=== PATIENT | male | born 1975 | race Caucasian/White ===

== ENCOUNTER → 2021-12-01 14:32 | Outpatient (BNVA) | payer SELFPAY | PROVIDERS: PCP Nurse Practitioner Family; Visit Provider Nurse Practitioner Family | DX: R06.02 Shortness of breath (principal); K21.9 Gastro-esophageal reflux disease without esophagitis | CPT/HCPCS: 71046 ==

== ENCOUNTER → 2021-12-04 09:40 | Outpatient (BNVA) | payer SELFPAY | PROVIDERS: PCP Nurse Practitioner Family; Visit Provider Nurse Practitioner Family | DX: R59.1 Generalized enlarged lymph nodes (principal); R53.83 Other fatigue; M54.6 Pain in thoracic spine; G89.29 Other chronic pain; R07.0 Pain in throat | CPT/HCPCS: 80053; 82306; 82607; 84403; 84550; 85025; 85651; 86038; 86140; 86200; 86431; 87070 ==

== ENCOUNTER → 2022-04-03 13:03 | Outpatient (BNVA) | payer SELFPAY | PROVIDERS: PCP Nurse Practitioner Family; Visit Provider Family Medicine | DX: J02.9 Acute pharyngitis, unspecified (principal) | CPT/HCPCS: 87071; 87880 ==

== ENCOUNTER 2023-01-21 13:19 | Outpatient (CLI) | payer SELFPAY ==
--- NOTE | 2023-01-21 13:30 | CT_ITS ---
WS: [id number] CT SINUSES TECHNIQUE: Noncontrast CT of the paranasal sinuses with coronal and sagittal reformatted images. CLINICAL INFORMATION: J32.9 - Chronic sinusitis, unspecified COMPARISON: None. DLP: 420.[address] scans at [facility] use at least one of these dose optimization techniques: automated e xposure control; mA and/or kV adjustment per patient size (includes targeted exams where dose is matc hed to clinical indication); or iterative reconstruction. FINDINGS: Mild LEFT RIGHT nasal septal deviation measuring 5 mm. Mild narrowing of the ostiomeatal units bilate rally which remain patent. Paranasal sinuses are well aerated. Mastoid air cells are well aerated. No rmal posterior nasopharynx and parapharyngeal fat. Frontal sinuses and ethmoid air cells are well aerated. Frontoethmoidal recesses are patent. Maxillar y sinuses are well aerated. Sphenoid sinuses are patent. Sphenoid ostia appear patent. IMPRESSION: 1. Mild LEFT RIGHT nasal septal deviation measuring 5 mm. 2. Mild narrowing of the ostiomeatal units bilaterally which remain patent. 3. Paranasal sinuses are well aerated. 4. Mastoid air cells are well aerated.
== END 2023-01-21 13:20 | disposition home or self-care (01) ==
LOC: RAD 13:22
PROVIDERS: PCP Nurse Practitioner Family; Visit Provider Nurse Practitioner Family
DX: J32.9 Chronic sinusitis, unspecified (principal); J34.2 Deviated nasal septum
CPT/HCPCS: 70486

== ENCOUNTER 2023-01-22 12:11 | Outpatient (CLI) | payer SELFPAY ==
--- NOTE | 2023-01-22 12:20 | US_ITS ---
WS: [id number] ULTRASOUND SOFT TISSUES LEFT neck. HISTORY: R22.1 - Localized swelling, mass and lump, neck COMPARISON: None available. TECHNIQUE: 2-D and color Doppler imaging is submitted. Ultrasound is directed over the LEFT neck near the mandibular angle. Palpable area corresponds to a m ass measuring 1.2 x 1.1 x 1.2 cm. This is most consistent with a small lymph node. Normal fatty hilum . Normal appearance of the cortex. No additional abnormalities. IMPRESSION: Palpable area at the LEFT mandibular angle appears to be a small benign-appearing lymph node.
== END 2023-01-22 12:12 | disposition home or self-care (01) ==
PROVIDERS: PCP Nurse Practitioner Family; Visit Provider Nurse Practitioner Family
DX: R22.1 Localized swelling, mass and lump, neck (principal)
CPT/HCPCS: 76536